=== PATIENT | male | born 1990 | race Caucasian/White ===

== ENCOUNTER 2021-08-09 03:35 | Emergency (ER) | payer OTHER ==
[~2021-08-09] VITALS: Ht 167.6 cm; Wt 70.3 kg
[2021-08-09 03:39] VITALS: BP 136/67
[2021-08-09] MEDS ORDERED: IBUPROFEN 800 MG TAB PO ONE (03:45)
[2021-08-09] MEDS ORDERED: IBUP-2218 PO (04:57)
[2021-08-09] MEDS ORDERED: HYDR-5080 PO (04:57)
[2021-08-09] MEDS ORDERED: BACITRACIN OINT 500 UNITS/GM PKT TP ONE ×2 (05:00→05:01)
[2021-08-09 05:43] VITALS: BP 136/67
--- NOTE | 2021-08-09 05:44 | NUR ---
PATIENT [facility] POLICE DEPT. PATIENT EXAMINED BY . PATIENT MEDICALLY CLEARED AND RELEASED IN CUSTODY IN STABLE CONDITION. ORIGINAL PRE-BOOK FORM GIVEN TO OFFICER ELEANOR.
== END 2021-08-09 05:44 ==
LOC: MED 03:35
DX: S42.001A Fracture of unspecified part of right clavicle, initial encounter for closed fracture (principal); V49.9XXA Car occupant (driver) (passenger) injured in unspecified traffic accident, initial encounter; Y93.89 Activity, other specified; Y92.89 Other specified places as the place of occurrence of the external cause; Y99.8 Other external cause status
CPT/HCPCS: 73030; 99283